=== PATIENT | male | born 1970 | race Caucasian/White ===

== ENCOUNTER → 2016-07-06 | Outpatient (CLI) | payer OTHER ==
[~2016-07-06] MED LIST: ADDE15TA PO; ADDE30TA PO; AMPH1TAB67 PO; EDAR40TA PO; GABA600T PO; IBUP800T23 PO; LAMO150T PO; METH750T PO; OXYC1TAB36 PO
[2016-07-06 12:21] LABS: AUTOMATED NEUTROPHIL # 4.7 TH/MM3 (1.8-7.7); BASOPHIL # 0.1 TH/MM3 (0-0.2); EOSINOPHIL # 0.1 TH/MM3 (0-0.4); HEMATOCRIT 43.8 % (39.0-51.0); HEMO FLAGS DIFF FINAL; LYMPH % 25.7 % (9.0-44.0); LYMPHOCYTE # 1.9 TH/MM3 (1.0-4.8); MEAN CELL VOLUME 88.1 FL (80.0-100.0); MONO % 5.8 % (0.0-8.0); NEUT % 65.5 % (16.0-70.0); PLATELET COUNT 346 TH/MM3 (150-450); RED BLOOD COUNT 4.96 MIL/MM3 (4.50-5.90); RED CELL DISTRIBUTION WIDTH 13.3 % (11.6-17.2); WHITE BLOOD COUNT 7.2 TH/MM3 (4.0-11.0)
[2016-07-06 12:26] LABS: APTT (PATIENT) 29.4 SEC (24.3-30.1); INTERNATIONAL NORMALIZED RATIO 0.9 RATIO
[2016-07-06 12:39] LABS: ALT (GPT) 59 U/L (12-78); ANION GAP 5 MEQ/L (5-15); AST (GOT) 19 U/L (15-37); BICARBONATE 31.7 MEQ/L (21.0-32.0); BLOOD UREA NITROGEN 15 MG/DL (7-18); CHLORIDE 104 MEQ/L (98-107); GLOMERULAR FILTRATION RATE 88 ML/MIN (>89); GLUCOSE,FASTING 104 MG/DL (74-99); POTASSIUM 3.6 MEQ/L (3.5-5.1); SODIUM (NA) 141 MEQ/L (136-145)
[2016-07-06 12:41] LABS: ALKALINE PHOSPHATASE 102 U/L (45-117); TOTAL BILIRUBIN ADULT 0.5 MG/DL (0.2-1.0)
--- NOTE | 2016-07-06 13:17 | RADRPT ---
EXAM DATE/TIME: 07/06/2016 12:40 [facility] COMPARISON: No previous studies available for comparison. INDICATIONS : Evaluate for pneumonia, pneumothorax or communicable disease. Pre op lumbar surgery. MEDICAL HISTORY : asthma, smoker SURGICAL HISTORY : None. ENCOUNTER: Initial ACUITY: 1 day PAIN SCORE: 0/10 LOCATION: Bilateral chest FINDINGS: PA and lateral views of the chest demonstrate the lungs to be symmetrically aerated without evidence of mass, infiltrate or effusion. The cardiomediastinal contours are unremarkable. Osseous structure s are intact. CONCLUSION: No acute disease. Jaspal Camara MD on July 06, 2016 at 13:15 Board Certified Radiologist. This report was verified electronically.
[2016-07-06 14:12] LABS: BLOOD, URINE NEG (NEG); COMMENT (UR) CULT NOT INDICATED; CULTURE IF INDICATED CULT NOT INDICATED; GLUCOSE,URINE NEG (NEG); KETONE, URINE NEG (NEG); MUCUS URINE FEW /lpf (OCC); NITRITE,URINE NEG (NEG); PH, URINE 5.5 (5.0-8.5); SQUAMOUS EPITHELIAL CELL URINE <1 /hpf (0-5); URINE COLOR YELLOW (YELLW/STRAW)
--- NOTE | 2016-07-07 23:02 | EKG ---
Date Performed: 07/06/2016 Time Performed: 11:56:21 PTAGE: 45 years EKG: Sinus rhythm POSSIBLE LEFT ATRIAL ENLARGEMENT NONSPECIFIC T-WAVE ABNORMALITY BORDERLINE ECG NO PREVIOUS TRACING DOCTOR: Maxi Apple Interpretating Date/Time 07/07/2016 23:00:56
== END ==
LOC: CPRE 11:33
PROVIDERS: ATTEND Neurological Surgery
DX: Z01.810 Encounter for preprocedural cardiovascular examination (principal); Z01.811 Encounter for preprocedural respiratory examination; Z01.812 Encounter for preprocedural laboratory examination; M51.16 Intervertebral disc disorders with radiculopathy, lumbar region; R94.31 Abnormal electrocardiogram [ECG] [EKG]; I10 Essential (primary) hypertension; Z79.891 Long term (current) use of opiate analgesic; Z79.01 Long term (current) use of anticoagulants
CPT/HCPCS: 36415; 71020; 80053; 81001; 85025; 85610; 85730; 93005

== ENCOUNTER → 2016-07-09 | Day surgery (SDC) | payer OTHER ==
[~2016-07-09] VITALS: Ht 182.9 cm; Wt 108.7 kg
[~2016-07-09] MED LIST changes: +*HYDROmorphone PF 1 MG VIAL PERIprocedural Use ONLY ONE; +*morphine SULFATE 8 MG/ML PERIprocedure ONLY ONE; +ACETAMINOPHEN 1000 MG/100 ML VIAL IV ONE; +BUPIVACAINE/EPINEPHRINE 0.5% PF 30 ML VIAL ONE; +DEXAMETHASONE SOD PHOS 4 MG/ML VIAL ONE; +DO NOT ADM ANY ANTICOAGULANT DRUGS XX PRN; +FAMOTIDINE 20 MG/2 ML VIAL ONE; +GELFOAM SIZE 100 ONE; +LACTATED RINGER'S 1000 ML INJ 1,000 ML ONE; +MIDAZOLAM HCL 2 MG/2 ML VIAL ONE; +NEOSTIGMINE 3 MG/3 ML SYR IV ONE; +ONDANSETRON HCL 4 MG/2 ML VIAL IV PUSH ONE; +PROPOFOL 200 MG/20 ML AMP IV ONE; +SODIUM CHLOR 0.9% 1000 ML INJ 1,000 ML IV SCH; +SODIUM CHLOR 0.9% 250 ML INJ 250 ML ONE; +THROMBIN (TOPICAL) 5,000 UNIT VIAL ONE; +VANCOMYCIN 1,000 MG/NS 250 ML IV SCH; +VANCOMYCIN HCL 1000 MG VIAL ONE; +fentaNYL CITRATE 250 MCG/5 ML AMP ONE; +methylPREDNISolone ACETATE 40 MG/ML VIAL ONE
[2016-07-09 06:18] VITALS: BP 138/95; PULSE 67; RESP 16; TEMP 98.3; O2SAT 97
--- NOTE | 2016-07-09 11:20 | PD.OP ---
Shalom Foster M.D. Operative Report Date of Surgery: Jul 09, 2016 Preoperative Diagnosis: Low back pain with left L5 and S1 radiculopathy from L5-S1 disc herniation Postoperative Diagnosis: Same Procedure: Left L5-S1 hemilaminotomy with microdiscectomy; microsurgical technique Anesthesia: Gen. endotracheal by Holland Markham Surgeon: Tye Hargrove M.D. Fish Header(s): Dulce Maria Barney Operation and Findings: Following administration of general endotracheal anesthesia, patient received vancomycin 1 g intravenously. Sequential compression devices were placed for DVT prophylaxis. He was then turned in prone position on Canelo frame and the Les table and all pressure points adequately padded. The lumbar region was then shaved and prepped with a Betadine and ChloraPrep. Sterile draping undertaken with Ioban. Midline incision overlying the L5-S1 level was then made after infiltrating the skin with 0.5% Marcaine with epinephrine solution. The skin incision was made extending down through the fascia and then using the subperiosteal plane on the left side the muscular attachments to the spinous process and lamina were detached. Intraoperative fluoroscopy was used for level confirmation and further dissection undertaken using microtechnique with microscope magnification. The inferior portion of the L5 and superior portion of the S1 lamina were then drilled out and the underlying ligamentum flavum also removed. There was some facet arthropathy noted in the medial portion of facet was also resected and the lateral recess decompressed. Epidural venous stasis which he with the bipolar cautery along with Gelfoam and thrombin and bone wax used at the laminotomy edges for hemostasis. The thecal sac was then gently retracted with a nerve root retractor and an extruded disc fragment was identified. Fragments were removed with pituitary forceps and the nerve root impingement along with thecal sac compression decompressed. The area was then copiously irrigated with vancomycin solution. I injected Depo-Medrol 40 mg in the epidural space. The retractors removed and the muscle fascia proximal using 2-0 Vicryl interrupted stitches. 3-0 Vicryl subcuticular stitches were also placed in an interrupted fashion and planned skin closure was with Mastisol and Steri-Strips. A sterile dressing was then applied and the patient then turned in the supine position and extubated and taken to recovery room in stable condition. There were no intraoperative complications and all sponge and needle count was correct at the end of the procedure. Estimated blood loss about 50ml. Tye Hargrove MD Jul 09, 2016 11:20
[2016-07-09 13:35] VITALS: BP 122/86; PULSE 68; RESP 16; TEMP 97; O2SAT 98
--- NOTE | 2016-07-09 16:30 | RADRPT ---
EXAM DATE/TIME: 07/09/2016 10:05 [facility] COMPARISON: No previous studies available for comparison. INDICATIONS : L5-S1 Laminectomy. MEDICAL HISTORY : Hypertension. Gastroesophageal reflux disease. Arthritis. Smoker. Asthma. SURGICAL HISTORY : None. ENCOUNTER: Initial ACUITY: 1 day PAIN SCORE: Non-responsive. LOCATION: Lumbar spine. FINDINGS: FINDINGS: Single lateral view of the spine demonstrates the spine to be in anatomic alignment. A probe is in pl rae at the L5-S1 disc space. CONCLUSION: 1. Postsurgical changes as above. Austin Schultz MD on July 09, 2016 at 16:28 Board Certified Radiologist. This report was verified electronically.
== END | disposition home or self-care (01) ==
LOC: HSDC 05:21 → EDUNIT# 08:00
PROVIDERS: ATTEND Neurological Surgery
DX: M54.5 Low back pain (principal); M51.16 Intervertebral disc disorders with radiculopathy, lumbar region
CPT/HCPCS: 00630; 63030; 63035; 72020; 76000; J0131; J1030; J1100; J1170; J2250; J2270; J2405; J2710; J3010; J3370; J7050; J7120